=== PATIENT | male | born 1995 | race Caucasian/White ===

== ENCOUNTER 2017-12-11 19:33 | Emergency (ER) | payer OTHER ==
[2017-12-11] MEDS ORDERED: DIPHTH/TETANUS/ACEL. PERTUSSIS IM ONLY ONE (19:50)
--- NOTE | 2017-12-11 19:50 | ER Report ---
History and Physical Time Seen By MD: 19:50 Hx. of Stated Complaint: CUT LEFT INDEX FINGER ON A KNIFE WHILE CUTTING CHICKEN. WILL NEED A TDAP HPI/ROS Chief Complaint: "cut finger" HPI: 22-year-old male presents to the emergency department after cutting his finger with a knife. He was working at [employer] and was not paying attention when he accidently cut his left index finger. He placed pressure on the wound and came to the emergency department. Reports the chicken was cooked. Can not recall his las tetanus shot. No associated symptoms, no treatments tried. ROS: Constitutional: denies fevers, chills, or sweating HEENT: denies head ache, sore throat, or cough Respiratory: denies difficulty breathing, denies shortness of breath CV: denies chest pain, denies palpitations GI: denies nausea, vomiting, constipation and diarrhea : denies changes in urination Allergies: Coded Allergies: No Known Drug Allergies (Unverified , 12/11/17) Home Meds Active Scripts Cephalexin 500 Mg Tab (KEFLEX 500 MG TAB) 500 Mg Tablet, 500 MG PO Q6H for 5 Days, #20 TAB Prov:MAGALY DIAZ [employer]ING [employer] 12/11/17 Past Medical/Surgical History denies past medical history Reviewed Nurses Notes: Yes Hx Substance Use Disorder: No Hx Alcohol Use: No Constitutional Vital Sign - Last 24 Hours 12/11/17 12/11/17 19:37 21:08 Temp 97.9 Pulse 91 85 Resp 16 16 B/P (MAP) 127/82 132/85 (101) Pulse Ox 95 92 O2 Delivery Room Air Room Air Physical Exam Physical Examination: General: 22-year-old male in no acute distress HEENT: normocephalic, atraumatic Respiratory: Bl equal respiratory excursion, CTA BL CV: Clear S1 S2, no murmur Musculoskeletal: moves all extremities, active, free ROM of the phalanges, 5/5 strength of the phalanges, capillary refill less than 2 seconds, good sensation of the fingers, 2.5 cm laceration to left index finger that extends into the nail bed Differential Diagnoses: laceration of the finger, infection of the laceration, tetanus Medical Decision Making ED Course/Re-evaluation ED Course 22-year-old male presents to the emergency department with a laceration to his left index finger. He reports cutting some cooked chicken at work when he cut his finger with a knife. History and physical examination was obtained. Differential diagnoses considered and shared with the patient. The patient was administered a Tdap shot in the ER today. The laceration was repaired with 5.0 Prolene x 7 interrupting sutures as well as, glue to the nail. The patient will be sent home on antibiotics and encouraged to return to the emergency department if his condition worsens. Procedure The wound was cleaned and a digital block of the left index finger was performed. 8 simple interrupting sutures using 5-0 Prolene material were applied to the 2.5 cm wound. Glue applied to the cut nail. Repair of the laceration without complication. Decision to Disposition Date: Dec 11, 2017 Decision to Disposition Time: 20:54 Depart Departure Latest Vital Signs Vital Signs Date Time Temp Pulse Resp B/P (MAP) Pulse Ox O2 Delivery O2 Flow Rate FiO2 12/11/17 21:08 85 16 132/85 (101) 92 Room Air 12/11/17 19:37 97.9 Impression: Primary Impression: Laceration Condition: Improved Disposition: HOME OR SELF-CARE New Scripts Cephalexin 500 Mg Tab (KEFLEX 500 MG TAB) 500 Mg Tablet 500 MG PO Q6H for 5 Days, #20 TAB Prov: MAGALY DIAZ 12/11/17 Patient Instructions: Finger Laceration (ED) Additional Instructions: Take antibiotics as directed by pharmacy. Keep the wound clean and dry for 48 hours and then shower and wash hands as usual. Follow up with your primary care provider to have the stitches removed in 7 to 10 days. Return to the emergency department if your condition worsens. MAGALY DIAZ Dec 11, 2017 19:50
[2017-12-11] MEDS ORDERED: CEPH500T7 PO (21:00)
[2017-12-11 21:08] VITALS: BP 132/85
== END 2017-12-11 21:09 | disposition home or self-care (01) ==
LOC: ER 19:41
DX: S61.211A Laceration without foreign body of left index finger without damage to nail, initial encounter (principal); W26.0XXA Contact with knife, initial encounter; Y93.G1 Activity, food preparation and clean up; Y92.511 Restaurant or cafe as the place of occurrence of the external cause; Y99.0 Civilian activity done for income or pay; Z23 Encounter for immunization
CPT/HCPCS: 90471; 90715; 99283